=== PATIENT | female | born 1965 | race Caucasian/White ===

== ENCOUNTER 2016-06-27 08:30 | Outpatient (CLI) ==
[2015-09-01 10:33] VITALS: BMI 34.8
--- NOTE | 2016-06-27 09:30 | MAMMO ---
EXAM: Bilateral digital screening mammogram History: Screening Comparison: Bilateral mammogram 05/10/2015 Findings: MLO and CC views of bilateral breasts demonstrate predominately fatty replaced breast par enchyma. There are no dominant masses, no suspicious microcalcifications and no architectural disto rtions Impression: Stable negative mammogram. Recommend followup routine screening mammography in 1 year. BIRADS 1
== END 2016-06-27 08:31 | disposition home or self-care (01) ==
LOC: RAD 08:30
PROVIDERS: ATTEND Nurse Practitioner Family
DX: Z12.31 Encounter for screening mammogram for malignant neoplasm of breast (principal)

== ENCOUNTER 2016-07-12 13:38 | Outpatient (CLI) ==
[2015-09-01 10:33] VITALS: BMI 34.8
[2016-07-12 14:36] LABS: BILIRUBIN,URINE Negative (NEGATIVE); KETONES,URINE Negative (NEGATIVE); LEUKOCYTE ESTERASE ,URINE 2+ (NEGATIVE); NITRITE,URINE Negative (NEGATIVE); PH,URINE 5.5 (5-9); PROTEIN,URINE 1+ (NEGATIVE); URINE, BLOOD 2+ (NEGATIVE)
[2016-07-12 14:47] LABS: ADD URINE MICROSCOPIC YES
[2016-07-12 14:50] LABS: BACTERIA,URINE 1+ (NOT PRESENT)
== END 2016-07-12 13:39 | disposition home or self-care (01) ==
LOC: LAB 13:38
PROVIDERS: ATTEND Nurse Practitioner Family
DX: R31.9 Hematuria, unspecified (principal); R80.9 Proteinuria, unspecified; R30.0 Dysuria
CPT/HCPCS: 81001; 87086; 87186

== ENCOUNTER 2016-07-31 07:40 | Outpatient (CLI) ==
[2015-09-01 10:33] VITALS: BMI 34.8
--- NOTE | 2016-07-31 09:19 | US ---
EXAM: Ultrasound retroperitoneal complete. HISTORY: Urinary tract infection. COMPARISON: None available. TECHNIQUE: Multiple juárez scale and color Doppler images. FINDINGS: Right kidney measures 10.8 x 3.9 x 5.6 cm. The left kidney measures 13.5 x 2.9 x 5.3 cm. Cortical echogenicity is normal. There is no hydronephrosis. Urinary bladder is unremarkable. IMPRESSION: No sonographic abnormality of the kidneys or bladder.
== END 2016-07-31 07:41 | disposition home or self-care (01) ==
LOC: RAD 07:40
PROVIDERS: ATTEND Nurse Practitioner Family
DX: R31.9 Hematuria, unspecified (principal); Z87.440 Personal history of urinary (tract) infections
CPT/HCPCS: 76770

== ENCOUNTER 2016-11-30 10:24 | Outpatient (CLI) ==
[2015-09-01 10:33] VITALS: BMI 34.8
[2016-11-30 12:57] LABS: BASOPHILS # (AUTO) 0.1 K/uL (0-0.2); BASOPHILS % (AUTO) 0.6 % (0.0-3.0); EOSINOPHILS # (AUTO) 0.1 K/ul (0.0-0.7); HEMATOCRIT 45.1 % (37.0-47.0); IMMATURE GRANULOCYTE % (AUTO) 0.3 % (0.0-5.0); LYMPHOCYTES # (AUTO) 3.3 K/uL (0.60-3.4); LYMPHOCYTES % (AUTO) 37.5 (10.0-50.0); MEAN CORPUSCULAR HEMOGLOBIN 29.5 pg (27.0-31.0); MEAN CORPUSCULAR HGB CONC 33.3 (31.8-35.4); MEAN CORPUSCULAR VOLUME 88.6 fl (81.0-99.0); MONOCYTES # (AUTO) 0.7 K/uL (0.4-2.0); MONOCYTES % (AUTO) 8.4 (0-10); NEUTROPHILS # (AUTO) 4.6 K/ul (2.0-6.9); NEUTROPHILS % (AUTO) 52.2; PLATELET COUNT 184 10^3/uL (140-440); RED BLOOD COUNT 5.09 10^6/ul (4.20-5.40); WHITE BLOOD COUNT 8.73 K/ul (4.6-10.2)
[2016-11-30 13:49] LABS: ALBUMIN 3.8 g/dL (3.4-5.0); ALBUMIN/GLOBULIN RATIO 1.06; ANION GAP 12.8; BILIRUBIN,TOTAL 0.51 mg/dL (0.00-1.20); CALCIUM 9.2 mg/dL (8.2-10.2); POTASSIUM 3.8 mmol/L (3.5-5.10); TOTAL PROTEIN 7.4 g/dL (6.4-8.2)
[2016-11-30 13:50] LABS: BUN/CREATININE RATIO 15.29; CHOL/HDL RATIO 4.2 (4.5-5.5); CREATININE 0.85 mg/dL (0.60-1.30)
== END 2016-11-30 10:25 | disposition home or self-care (01) ==
LOC: LAB 10:24
PROVIDERS: ATTEND Nurse Practitioner Family
DX: M79.671 Pain in right foot (principal); M79.672 Pain in left foot; I10 Essential (primary) hypertension; F41.8 Other specified anxiety disorders
CPT/HCPCS: 36415; 80053; 80061; 84443; 85025

== ENCOUNTER 2017-08-02 13:15 | Outpatient (CLI) ==
[2015-09-01 10:33] VITALS: BMI 34.8
== END 2017-08-02 13:16 | disposition home or self-care (01) ==
LOC: LAB 13:15
PROVIDERS: ATTEND Nurse Practitioner Family
DX: E78.1 Pure hyperglyceridemia (principal); I10 Essential (primary) hypertension; J44.9 Chronic obstructive pulmonary disease, unspecified
CPT/HCPCS: 36415; 80053; 80061; 85025

== ENCOUNTER 2017-08-05 10:55 | Outpatient (CLI) ==
[2015-09-01 10:33] VITALS: BMI 34.8
== END 2017-08-05 10:56 | disposition home or self-care (01) ==
LOC: RAD 10:55
PROVIDERS: ATTEND Nurse Practitioner Family
DX: Z12.31 Encounter for screening mammogram for malignant neoplasm of breast (principal)
CPT/HCPCS: 77067

== ENCOUNTER 2017-11-05 15:11 | Outpatient (CLI) ==
[2015-09-01 10:33] VITALS: BMI 34.8
== END 2017-11-05 15:12 | disposition home or self-care (01) ==
LOC: RHC-LAB 15:11
PROVIDERS: ATTEND Nurse Practitioner Family
DX: R53.83 Other fatigue (principal); E66.3 Overweight
CPT/HCPCS: 36415; 80053; 82306; 82607; 84443

== ENCOUNTER 2017-11-08 08:38 | Outpatient (CLI) ==
[2015-09-01 10:33] VITALS: BMI 34.8
== END 2017-11-08 08:39 | disposition home or self-care (01) ==
LOC: CAR 08:38
PROVIDERS: ATTEND Nurse Practitioner Family
DX: E66.3 Overweight (principal); R53.83 Other fatigue
CPT/HCPCS: 93005; 93010

== ENCOUNTER 2017-12-05 08:42 | Outpatient (CLI) ==
[2015-09-01 10:33] VITALS: BMI 34.8
--- NOTE | 2017-12-05 09:39 | CT ---
EXAM: CT of the chest with contrast History: Follow-up lung nodules. Comparison: CT abdomen pelvis 03/23/2016 Technique: Multiplanar CT images through the thorax were obtained following administration of IV con trast Findings: Heart size is normal. No pericardial effusion. Great vessels are unremarkable. No patho logically enlarged thoracic lymph nodes. No consolidation. No pleural fluid and no pneumothorax. S table tiny benign pulmonary nodules. No developing pulmonary nodules. Within the visualized upper abdomen, no acute findings. No acute osseous abnormalities. Impression: 1. No acute intrathoracic process. 2. Stable tiny benign pulmonary nodules. No additional follow-up is needed.
== END 2017-12-05 08:43 | disposition home or self-care (01) ==
LOC: RAD 08:42
PROVIDERS: ATTEND Nurse Practitioner Family
DX: R91.8 Other nonspecific abnormal finding of lung field (principal)

== ENCOUNTER 2017-12-06 09:47 | Outpatient (CLI) ==
[2015-09-01 10:33] VITALS: BMI 34.8
--- NOTE | 2017-12-06 11:42 | MRI ---
EXAM: MRI right knee without contrast. HISTORY: Pain. Prior reported meniscus surgery March 2015. Swelling.. TECHNIQUE: Using a local extremity coil on a high field strength magnet multiplanar multisequence ma gnet resonance imaging performed of the right knee without intravenous or intra-articular gadolinium contrast.. COMPARISON: MRI right knee 01/09/2016. FINDINGS: I do not have prior radiographs of the right knee available for comparison at the time of this dictation. Within the medial compartment there is again noted extensive partial meniscectomy involving the poste rior horn, body medial meniscus.. There is again seen markedly severe diffuse chondrosis and cartila ge denudation/ulceration over the weightbearing medial compartment. Joint centered subchondral scler osis as well as persistent joint centered subchondral bone marrow edema. Productive osteophyte forma tion. Within the lateral compartment there remains increased intrameniscal signal along the anterior horn t o body lateral meniscus. No unequivocal extension to the meniscal free edge. This may reflect area of degeneration verse closed tear. The lateral compartment cartilage shows chondrosis/cartilage ulce ration over the weightbearing lateral femoral condyle. Productive osteophyte formation. Within the patellofemoral compartment the patella seated with moderate patellar chondrosis/chondromal acia patella and cartilage surface irregularity. Corresponding disease over the superior central tro chlear groove. Productive osteophyte formation. Large right knee effusion. Synovitis. Prominent plica. No large osteochondral loose bodies. Intac t ACL and PCL fibers identified. Synovial/ganglion cyst formation along the posterior cruciate ligam ent recess. The extensor mechanism is intact. The medial collateral ligament intact albeit bowed me dially. The lateral collateral ligament complex intact as is the posterolateral corner. IMPRESSION: Extensive partial meniscectomy involving the posterior horn, body medial meniscus. Question degeneration verse closed tear anterior horn to body lateral meniscus. Markedly severe right knee osteoarthrosis, medial compartment dominant, as described. Large right knee effusion. Synovitis. Prominent plica.. Intact cruciate and collateral ligaments. Synovial/ganglion cyst formation along the posterior cruci ate ligament recess. Recommendation is obtainment and correlation with plain film radiographs of the right knee as none ar e available for comparison at the time of this dictation.
== END 2017-12-06 09:48 | disposition home or self-care (01) ==
LOC: RAD 09:47
PROVIDERS: ATTEND Nurse Practitioner Family
DX: M25.561 Pain in right knee (principal); G89.29 Other chronic pain

== ENCOUNTER 2018-11-27 13:06 | Outpatient (CLI) ==
[2015-09-01 10:33] VITALS: BMI 34.8
== END 2018-11-27 13:07 | disposition home or self-care (01) ==
LOC: RHC-LAB 13:06 → FCC-LAB 13:07
PROVIDERS: ATTEND Family Medicine
DX: S81.801A Unspecified open wound, right lower leg, initial encounter (principal)
CPT/HCPCS: 87070; 87186

== ENCOUNTER 2018-12-04 12:13 | Outpatient (CLI) ==
[2015-09-01 10:33] VITALS: BMI 34.8
== END 2018-12-04 12:14 | disposition home or self-care (01) ==
LOC: RHC-LAB 12:13
PROVIDERS: ATTEND Nurse Practitioner Family
DX: I10 Essential (primary) hypertension (principal); F41.8 Other specified anxiety disorders; E78.1 Pure hyperglyceridemia
CPT/HCPCS: 36415; 80053; 80061; 84443; 85025

== ENCOUNTER 2018-12-08 08:50 | Outpatient (CLI) ==
[2015-09-01 10:33] VITALS: BMI 34.8
--- NOTE | 2018-12-08 09:27 | DI ---
EXAM: Three views of the left foot. History: Left foot pain. Findings: No acute fracture or dislocation. 1.2 cm plantar spur. Mild narrowing of the first MTP j oint with tiny osteophytes. No radiopaque foreign bodies. Impression: 1. No acute osseous abnormality. 2. Plantar spur. 3. Mild osteoarthritis of the first MTP joint
== END 2018-12-08 08:51 | disposition home or self-care (01) ==
LOC: RAD 08:50
PROVIDERS: ATTEND Nurse Practitioner Family
DX: M79.672 Pain in left foot (principal); S99.922A Unspecified injury of left foot, initial encounter

== ENCOUNTER 2018-12-12 10:19 | Outpatient (CLI) ==
[2015-09-01 10:33] VITALS: BMI 34.8
--- NOTE | 2018-12-12 11:15 | MAMMO ---
EXAM: Bilateral digital screening mammogram (2-D and 3-D) History: Screening Comparison: Bilateral mammogram 08/05/2017 Findings: MLO and CC views of bilateral breasts demonstrate predominately fatty replaced breast pare nchyma. CAD was reviewed by the radiologist. Tomosynthesis was performed. There are no dominant ma sses, no suspicious microcalcifications and no architectural distortions Impression: Stable negative mammogram. Recommend followup routine screening mammography in 1 year. BI-RADS 2, benign
== END 2018-12-12 10:20 | disposition home or self-care (01) ==
LOC: RAD 10:19
PROVIDERS: ATTEND Nurse Practitioner Family
DX: Z12.31 Encounter for screening mammogram for malignant neoplasm of breast (principal)

== ENCOUNTER 2019-02-11 08:59 | Emergency (ER) ==
[2019-02-11 09:03] VITALS: BP 151/93; TEMP 96.5; BMI 37.6
--- NOTE | 2019-02-11 09:27 | ED.PDOC ---
General ED Provider: Dr. OLESYA OCHOA Chief Complaint: Finger Laceration Stated Complaint: MIDDLE LEFT FINGER LACERATION 2 DAYS AGO Time Seen by Physician: 09:00 (EFRAIN FROM E.M.S PRESENT) Mode of Arrival: Walk-In Information Source: Patient Exam Limitations: No limitations Primary Care Provider: TREY ROCHA Referred to ED by: Other (PT STATED HER LAST TENUS WAS 2 YEARS AGO) Nursing and Triage Documentation Reviewed and Agree: Yes Does patient meet sepsis criteria?: No If yes, has appropriate treatment been initiated?: No (PHOTOS SUBMITTED ) System Inflammatory Response Syndrome: Not Applicable Sepsis Protocol: For patient's 13 years and over: Temp is 96.8 and below OR 101 and greater Pulse >90 BPM Resp >20/minute Acutely Altered Mental Status Are patient's symptoms suggestive of a new infection, such as: -Pneumonia -Skin, Soft Tissue -Endocarditis -UTI -Bone, Joint Infection -Implantable Device -Acute Abdominal Infection -Wound Infection -Meningitis -Blood Stream Catheter Infection -Unknown Skin Complaint Exam - Lac/Torso/Upper Ext. Complaint/Exam Location of Injury: Left (MIDDLE FINGER ) Mechanism of Injury: Laceration Onset/Duration: 2 DAYS SEE PHOTOS Symptoms Are: Still present Current Severity: Mild Aggravating: None Alleviating: None Associated Signs and Symptoms: Denies: Fever, Chills, Erythema, Numbness, Tingling Related History: Denies: Anticoagulant use Differential Diagnoses: Closed Fracture, Laceration Review of Systems - Review Of Systems Constitutional: Reports: No symptoms Eyes: Reports: No symptoms Ears, Nose, Mouth, Throat: Reports: No symptoms Respiratory: Reports: No symptoms Cardiac: Reports: No symptoms GI: Reports: No symptoms : Reports: No symptoms Musculoskeletal: Reports: No symptoms Skin: Reports: Other (LACERATION LEFT MIDDLE FINGER ) Neurological: Reports: No symptoms Endocrine: Reports: No symptoms Hematologic/Lymphatic: Reports: No symptoms All Other Systems: Reviewed and Negative Past Medical History - Past Medical History Previously Healthy: Yes Endocrine: Reports: None Cardiovascular: Reports: None Respiratory: Reports: None Hematological: Reports: None Gastrointestinal: Reports: None Genitourinary: Reports: None Neuro/Psych: Reports: None Musculoskeletal: Reports: None Cancer: Reports: None Last Menstrual Period: YEARS AND YEARS AGO - Surgical History General Surgical History: Reports: Unknown - Family History Family History: Reports: Unknown - Social History Smoking Status: Current every day smoker Hx Substance Use: No Alcohol Screening: None - Immunizations Tetanus Shot up to Date: No Physical Exam - Physical Exam Appearance: Well-appearing, No pain distress, Well-nourished Eyes: SHI, EOMI, Conjunctiva clear ENT: Ears normal, Nose normal, Oropharynx normal Respiratory: Airway patent, Breath sounds clear, Breath sounds equal, Respirations nonlabored Cardiovascular: RRR, Pulses normal, No rub, No murmur GI/: Soft, Nontender, No masses, Bowel sounds normal, No Organomegaly Musculoskeletal: Normal strength, ROM intact, No edema, No calf tenderness Skin: Warm, Dry (3M LACERATION 1 MM DEEP AND WIDE NO F/B ) Neurological: Sensation intact, Motor intact, Reflexes intact, Cranial nerves intact, Alert, Oriented Psychiatric: Affect appropriate, Mood appropriate Interpretation - Radiology Interpretation Radiology Interpretation By: Radiologist Radiology Results: No acute changes Critical Care Note - Critical Care Note Total Time (mins): 0 Course - Course Orders, Labs, Meds: Orders Category Date Time Status FINGER(S), LEFT MIN 2V Stat RADS 02/11/19 09:24 Completed Vital Signs: Temp Pulse Resp BP Pulse Ox 02/11/19 09:00 96.5 F L 101 H 18 151/93 H 96 Departure - Departure Time of Disposition: 10:15 Disposition: HOME SELF-CARE Discharge Problem: Laceration of finger Instructions: Laceration (ED) Condition: Good Pt referred to PMD for follow-up: Yes IPMP verified?: No Additional Instructions: Please call your Family Physician as soon as possible to schedule a follow-up appointment. Prescriptions: Amoxicillin 500 mg PO Q8HR #21 tablet Allergies/Adverse Reactions: Allergies No Known Allergies Allergy (Unverified 02/11/19 09:10) Home Medications: Ambulatory Orders Acetaminophen [Tylenol] 325 mg PO PRN 04/06/14 Diazepam 2 mg PO TID #90 01/05/19 Amoxicillin 500 mg PO Q8HR #21 tablet 02/11/19 Disposition Discussed With: Patient
--- NOTE | 2019-02-11 09:49 | DI ---
EXAM: Third digit of the left hand three views HISTORY: Injury, laceration. FINDINGS / IMPRESSION: There is a tiny soft tissue defect of the distal finger consistent with lacer ation. No radiopaque soft tissue foreign bodies are seen. The bone and joint structures are normal.
== END 2019-02-11 10:12 | disposition home or self-care (01) ==
LOC: ED 08:59
DX: S61.213A Laceration without foreign body of left middle finger without damage to nail, initial encounter (principal); W45.8XXA Other foreign body or object entering through skin, initial encounter; F17.210 Nicotine dependence, cigarettes, uncomplicated
CPT/HCPCS: 99283